=== PATIENT | female | born 1940 | race American Indian/Alaskan Native ===

== ENCOUNTER 2017-05-27 15:19 | Emergency (ER) | payer MEDICARE ==
--- NOTE | 2017-05-27 15:45 | Emergency Department Report ---
Chief Complaint: Fall Stated Complaint: CHEST PAIN/FALL Time Seen by Provider: 05/27/17 15:42 - HPI History of Present Illness: PT c/o falling 3-4 times in the previous 2 days - ROS Review of Systems: + fall + cp after fall - bruising - Exam Physical Exam: pt is alert and appropriate + chest wall tenderness MSE screening note: Focused history and physical exam performed. Due to findings the following was ordered: ekg, labs, ct, xr ED Disposition for MSE Condition: Stable
[2017-05-27 16:22] LABS: Basophils % (Auto) 0.9 % (0.0-1.8); Eosinophils % (Auto) 1.1 % (0.0-4.3); Hematocrit 33.6 % (30.3-42.9); Hemoglobin 10.8 gm/dl (10.1-14.3); Mean Corpuscular HGB Conc 32 % (30-34); Mean Corpuscular Hemoglobin 29 pg (28-32); Mean Corpuscular Volume 89 fl (79-97); Platelet Count 227 K/mm3 (140-440); Red Cell Distribution Width 18.5 % (13.2-15.2); White Blood Count 4.4 K/mm3 (4.5-11.0)
[2017-05-27 16:36] LABS: INR 0.99 (0.87-1.13)
[2017-05-27 16:37] LABS: Partial Thromboplastin Time 35.4 Sec. (24.2-36.6)
[2017-05-27 16:43] LABS: Alanine Aminotransferase 12 units/L (7-56); Albumin/Globulin Ratio 1.1 %; Alkaline Phosphatase 68 units/L (35-129); Anion Gap 29 mmol/L; Blood Urea Nitrogen 26 mg/dL (7-17); Calcium 10.4 mg/dL (8.4-10.2); Carbon Dioxide 12 mmol/L (22-30); Glucose 103 mg/dL (65-100); Potassium 5.1 mmol/L (3.6-5.0); Sodium 139 mmol/L (137-145); Total Protein 7.6 g/dL (6.3-8.2)
--- NOTE | 2017-05-27 16:46 | Cat Scan Report ---
Cranial CT without contrast. History: Headache after trauma. Findings: There is no evidence of acute hemorrhage or infarct. The posterior fossa is unremarkable. The ventricles are normal in size and contour. There are no masses or extra-axial collections. The calvarium is intact. Impression: No acute findings.
--- NOTE | 2017-05-27 16:52 | Cat Scan Report ---
CT of the cervical spine without contrast. History: Neck pain after fall. Findings: There is no evidence of fracture or subluxation. Generalized spondylosis is seen throughout the cervical spine. There is multilevel facet joint arthropathy. The odontoid is intact. 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 Impression: No acute findings.
[2017-05-27] MEDS ORDERED: NORCO 10/325 PO ONE (22:21)
--- NOTE | 2017-05-27 22:32 | Emergency Department Report ---
HPI - General Chief Complaint: Fall Time Seen by Provider: 05/27/17 15:42 - HPI HPI: PT c/o falling 3-4 times in the previous 2 days. She stated that she recently moved from [facility]. 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 She has been walking with a cane since that time. But for the past month, she has been feeling a little unsteady and and weak while ambulating. After the fall yesterday she stated that her daughter tried to pick her up and she felt a pop in the left chest and shoulder area. No nausea vomiting no shortness of breath. - ROS Review of Systems: + fall + cp after fall - bruising - Exam Physical Exam: pt is alert and appropriate + chest wall tenderness ED Past Medical Hx - Past Medical History Previous Medical History?: Yes Hx Hypertension: Yes Hx Deep Vein Thrombosis: (PE x 2) Hx Pulmonary Embolism: Yes (PE X 2) Hx Renal Disease: Yes (Renal insufficiency) Hx Arthritis: Yes Additional medical history: Right shoulder pain - Surgical History Past Surgical History?: Yes Additional Surgical History: Right knee surgery 2008 - Social History Smoking Status: Former Smoker Substance Use Type: Prescribed - Medications Home Medications: Home Medications Medication Instructions Recorded Confirmed Last Taken Type traMADol [Ultram] 50 mg PO Q6HR PRN #14 tablet 05/27/17 Unknown Rx ED Review of Systems ROS: Stated complaint: CHEST PAIN/FALL Other details as noted in HPI Comment: All other systems reviewed and negative Cardiovascular: chest pain Musculoskeletal: other (chest wall pain) Physical Exam - Physical Exam Vital Signs: Vital Signs 05/27/17 15:37 Temperature 98.8 F Pulse Rate 106 H Respiratory 18 Rate Blood Pressure 160/90 O2 Sat by Pulse 96 Oximetry Physical Exam: Vital signs reviewed Gen. alert and oriented 3 in no distress Head atraumatic normocephalic Eyes PERR LA EOMI Chest regular rate and rhythm normal S1-S2 , + chest wall tenderness lungs clear bilaterally Abdomen soft nondistended Back no point tenderness paravertebral tenderness Neuro no focal deficit. Psych normal mood. ED Course Vital Signs 05/27/17 15:37 Temperature 98.8 F Pulse Rate 106 H Respiratory 18 Rate Blood Pressure 160/90 O2 Sat by Pulse 96 Oximetry ED Medical Decision Making - Lab Data Result diagrams: 05/27/17 16:01 05/27/17 16:01 Critical care attestation.: If time is entered above; I have spent that time in minutes in the direct care of this critically ill patient, excluding procedure time. ED Disposition Clinical Impression: Chest wall pain Disposition: TO HOME OR SELFCARE Is pt being admited?: No Does the pt Need Aspirin: No Condition: Stable Instructions: Chest Pain (ED) Prescriptions: traMADol [Ultram] 50 mg PO Q6HR PRN #14 tablet PRN Reason: Pain Referrals: PRIMARY CARE, [Primary Care Provider] - 3-5 Days
[2017-05-27 22:41] VITALS: BP 168/83
--- NOTE | 2017-05-28 09:41 | XRay Report ---
AP CHEST: HISTORY: chest pain AP view of the chest demonstrates a normal mediastinal and cardiac contour with clear lungs and normal bony and soft tissue structures. IMPRESSION: Unremarkable AP chest.
== END 2017-05-27 23:28 | disposition home or self-care (01) ==
LOC: ED 15:19
DX: R07.89 Other chest pain (principal)
CPT/HCPCS: 36415; 70450; 71010; 72125; 80053; 82550; 83880; 84484; 85025; 85610; 85730; 93005; 93010